=== PATIENT | female | born 1990 | race Caucasian/White ===

== ENCOUNTER 2017-02-17 21:19 | Outpatient (CLI) | payer OTHER ==
[~2017-02-17] VITALS: Ht 157.5 cm; Wt 75.9 kg
[2017-02-17 22:07] VITALS: BP 109/64; PULSE 88; RESP 18; Ht 157.5 cm; Wt 75.9 kg
[2017-02-17] MEDS ORDERED: PREN-93 PO (22:09)
--- NOTE | 2017-02-17 23:06 | RADRPT ---
PROCEDURE: OB ultrasound for biophysical profile CLINICAL INDICATION: Contractions. TECHNIQUE: Multiple sonographic images of the gravid uterus performed. The images were reviewed on a PACS workstation. COMPARISON: None FINDINGS: A single live intrauterine is identified with heart rate of 152 bpm. Fet us is in a cephalic presentation. Placenta is located fundal. Biophysical profile: breathing movement = 2/2 tone = 2/2 motion = 2/2 CARRIE = 2/2 CARRIE = 10.6 cm. Cervix is 2 cm in length with minimal fluid in the endocervical canal.. IMPRESSION: 1. Single live intrauterine gestation. 2. Biophysical profile = 8/8. 3. CARRIE = 10.6 cm. 4. Cervix 2 cm length with minimal fluid in the endocervical canal. RPTAT: HMVK .Yoel Pierce MD, Date Time Electronically viewed and signed by .Yoel Pierce MD, MD on 02/17/2017 23:06 .K/
--- NOTE | 2017-02-18 00:53 | PN ---
Triage Information Date/Time February 18, 2017 Reason for visit: Postdates. Weeks of Gestation 40w 4d /Para 3/2 Diabetes: none Hypertention: none Additional information Pt was sent from the clinic as she is postdates for a BPP/NST. PMHx: none. POBHx: x 2. PSHx: none. NKDA. Objective Vital Signs Date Time Temp Pulse Resp B/P Pulse Ox O2 Delivery O2 Flow Rate FiO2 02/17/17 22:07 98.2 88 18 109/64 Room Air Heart Rate: 130's Heart Rate Comments Accels to 170 bpm. No decels. Occasional UC's, not felt by pt. Contractions: >10 Minutes Apart Exam 50%/2/-3. Results/Medications Imaging Results BPP /. CARRIE 10.6 cm. VTX. Fundal placenta. Disposition: Discharge Assessment/Plan A: IUP at 40w 4d. Postdates. P: D/C home. Follow-up at the clinic 02/19 as scheduled. Labor precautions reviewed. DONITA NORTH MD Feb 18, 2017 00:53
--- NOTE | 2017-02-18 02:08 | TRIAGE ---
OB Triage Datetime Report Generated by CPN: 02/18/2017 02:08 Datetime: 02/18/2017 00:30 Labor Evaluation Frequency: 2-5 Monitor Mode: External Duration (sec)2399: 60-100 Quality: Mild Pattern: Normal: <= 5 Contractions in 10 Minutes Resting Tone [place]: Relaxed Heart Rate FHR Baseline Rate: 145 Monitor Mode: External US FHR Baseline Changes: No Baseline Change Variability: Moderate 6-25 bpm Accelerations: 15X15 Decelerations: None Category: Category I Datetime: 02/17/2017 23:41 Vaginal Exam Dilatation (cms): 2.0 Effacement (%): 50 Station: -3 Exam By: Rommel GALLO RN Vaginal Bleeding: None Cervix, Consistency: Firm Cervix, Position: Posterior Presentation 'A': Cephalic Datetime: 02/17/2017 23:36 Stage of : OB Triage Datetime: 02/17/2017 23:30 Labor Evaluation Frequency: 2-5 Monitor Mode: External Duration (sec)2399: 60-120 Quality: Mild Pattern: Normal: <= 5 Contractions in 10 Minutes Resting Tone [place]: Relaxed Heart Rate FHR Baseline Rate: 135 Monitor Mode: External US FHR Baseline Changes: No Baseline Change Variability: Moderate 6-25 bpm Accelerations: 15X15 Decelerations: None Category: Category I Datetime: 02/17/2017 22:30 Labor Evaluation Frequency: 2-5 Monitor Mode: External Duration (sec)2399: 30-120 Quality: Mild Pattern: Normal: <= 5 Contractions in 10 Minutes Resting Tone [place]: Relaxed Heart Rate FHR Baseline Rate: 145 Monitor Mode: External US FHR Baseline Changes: No Baseline Change Variability: Moderate 6-25 bpm Accelerations: 15X15 Decelerations: None Category: Category I Datetime: 02/17/2017 21:34 EGA: 40.3 Datetime: 02/17/2017 21:28 Stage of : OB Triage Time of Arrival: 02/17/2017 21:02 Arrived By: Ambulatory Arrived From: Home Chief Complaint: FROM OFFICE CARRIE AND MOVEWMENT (Annotations: Data stored by CPN on behalf of user) Movement: Present Contractions: Irregular Vaginal Bleeding: None Vaginal Discharge: Denies Recent Sexual Intercouse: Denies Abdominal Trauma: Not Applicable Patient Complaints: None Time Provider Notified: 02/17/2017 21:00 Provider Notified: DR NORTH Initial Plan: CALL FLORESITA BLACK Maternal Assessment Level of Consciousness: Fully Conscious DTR's/Clonus: DTRs 2+; No Clonus Headache: Denies Blurred Vision: No Respiratory Effort: Unlabored; Regular Rhythm; Equal Expansion Breath Sounds, Left: Clear and Equal Breath Sounds, Right: Clear and Equal Nausea/Vomiting: Denies RUQ Epigastric Pain: Denies Lower Extremities Edema: None Degree: None Upper Extremities Edema: None Degree: None Facial Edema: None Temperature Route: Oral Fall Risk Assessment History of Falling: (0) No Secondary Diagnosis: (0) No Ambulatory Aid: (0) Bedrest/Nurse Assist IV Therapy: (0) No Gait: (0) Normal/Bedrest/Immobile Mental Status: (0) Oriented to Own Ability Fall Score: 0 Fall Risk Score Definition: No Risk: No action required Monitor Mode: External Monitor Mode: External US Pain Assessment Pain Scale: 0
== END 2017-02-18 00:54 | disposition home or self-care (01) ==
LOC: OBT 21:19 → L-D 21:21 → OBT 02-18 00:54
PROVIDERS: ATTEND Obstetrics & Gynecology
DX: O48.0 Post-term pregnancy (principal); Z3A.40 40 weeks gestation of pregnancy
CPT/HCPCS: 76817; 76818; Z7500; G0463